=== PATIENT | female | born 1970 | race Caucasian/White ===

== ENCOUNTER 2025-04-12 09:37 | Emergency (ER) | payer BC, SELFPAY ==
[2025-04-12 09:48] VITALS: BP 101/83; PULSE 87; RESP 20; TEMP 36.6; O2SAT 98
--- NOTE | 2025-04-12 09:53 | ED_ITS ---
HPI - Back Pain/Injury General Chief Complaint: Back Pain/Injury Stated Complaint: Back Pain Time Seen by Provider: 04/12/25 09:54 Source: patient Mode of arrival: ambulatory Limitations: no limitations History of Present Illness HPI Narrative: 54 y/o female presented for c/o mid back pain x3 days. Pain radiates to the left trap and arm. Described as throbbing and aching and can feel a knot at the site. Pt works as an ER nurse, and pain Started while bent over a pt starting an IV on her 3rd shift in a row. Endorses chronic back pain and joint pain; takes meloxicam. Took a muscle relaxer last night which helped. Denies pain radiating into the hips or legs, numbness, tingling, weakness of the lower extremities, or change in gait, saddle paresthesia or loss of bowel or bladder. Related Data Home Medications ?Medication ?Instructions ?Recorded ?Confirmed ?Last Taken ?Type fluoxetine 20 mg capsule mg 04/12/25 Unknown History meloxicam 7.5 mg tablet mg 04/12/25 Unknown History Allergies Allergy/AdvReac Type Severity Reaction Status Date / Time No Known Allergies Allergy Verified 04/12/25 10:02 Review of Systems Review of Systems: CONSTITUTIONAL: Denies body aches, fever, chills EYES: Denies visual changes CARDIOVASCULAR: Denies chest pain, palpitations, or edema. RESPIRATORY: Denies cough or dyspnea. GASTROINTESTINAL: Denies abdominal pain, nausea, vomiting, or diarrhea. SKIN: Denies rash, itching, or wounds. MUSCULOSKELETAL: reports back pain NEUROLOGIC: Denies headache, numbness, tingling, or weakness. All systems reviewed & are unremarkable except as noted in HPI and below PMFSH Comments At time of signature, I have reviewed and agree with nursing past medical, surgical, social and family history unless otherwise noted. Please see nursing chart for further information. There is no relevant family history pertinent to the presenting complaint Exam Narrative: GENERAL: Well-appearing NECK: Supple. full ROM CHEST: Speaks in full sentences. No respiratory distress. HEART: Regular rate and rhythm. Normal and equal peripheral pulses. MUSC: Left mid backing in machine tender with palpation approx T7,8. No Vertebral point tenderness. BLEs with normal strength and sensation, normal range of motion No open wounds, skin warm, dry, pink. Capillary refill less than 3 seconds. Gait steady. SKIN: Warm, dry, no rash. NEURO: Alert and oriented x3. Course Course Emergency Course: Patient is aware of diagnosis, understands and agrees to treatment plan. Anticipatory guidance given. Patient agrees to follow-up as directed and is aware of reasons to seek care at the emergency department. Portions of this record may have been created with voice recognition software Level of Care: Express Care Visit Vital Signs Vital signs: Reviewed MDM - Back Pain/Injury MDM Narrative Medical decision making narrative: Patient presented with back pain. Per shared decision making patient declines imaging at this time. Patient has muscle relaxer at home and will continue. Rx steroid. Advised supportive measures and s/s to go to the ER. Pt is stable and appropriate for outpt treatment and follow up with pcp. Differential Diagnosis Differential diagnosis: Likely lumbar radiculopathy, sciatica, strain of lumbar region, renal colic, pyelonephritis and discitis Discharge Plan Discharge Clinical Impression: Back strain Patient Disposition: Home Condition: Stable Instructions: Back Pain (ED) Additional Instructions: Please follow up with your Primary Care Doctor within 72 hours - call for an appointment. Avoid lifting. pushing. pulling, or anything that worsens the pain. Walking and other gentle exercising several times a week has been shown to improve back pain; bed rest is not recommended. Take steroid as directed (hold the meloxicam while taking steroid) Tylenol 1000mg every 8 hours Take muscle relaxers every 8 hours as needed for muscle spasm- do not drive or make any important decisions while on this medication for it can make you drowsy. Over the counter pain cream like icy/hot or biofreeze, or Salon pas/lidocaine 4% patch. You may apply heat or cold to the area as needed. Go to the ER for worsening symptoms or concerns; If you experience any worsening pain, swelling, numbness, weakness, problems with bladder or bowel function, weakness or loss of feeling in one or both of your legs, or any other serious concerns. Patient Language: Malawian Prescriptions: New methylprednisolone [Medrol (Manjit)] 4 mg tablets,dose pack See Rx Instructions .ROUTE .COMPLEX Qty: 21 0RF Rx Instructions: orally per package directions No Action meloxicam 7.5 mg tablet fluoxetine 20 mg capsule Follow-up/Referrals: UNKNOWN,DOCTOR [Primary Care Provider] -
--- OUTSIDE RECORDS SUMMARY | 2025-04-12 10:18 | XMS_ITS | Referral Summary ---
Author Organization [address] Address [address] [place] [id number] Care Team Providers Care Patch Worker Name Role Phone Jona Becker MD Primary Care Provider + Encounters Date Type Department Care Team Description 03/15/2025 Results [facility] [address] [place] [id number] Romulo Sterling MD Pap, reflex HPV 03/01/2025 3:30 PM CDT Office Visit [place] [facility] [address] [place] [phone] Romulo Sterling MD Well woman exam (Primary Dx) from Last 3 Months Allergies Active Allergy Reactions Criticality Noted Date Comments Lisinopril Cough Low 02/12/2019 Medications FLUoxetine (PROzac) 20 mg capsule TK 1 C PO QAM 1 9 Active valsartan (DIOVAN) 160 mg tablet TAKE ONE TABLET BY MOUTH EVERY DAY 9 Active NIACIN ORAL Take by mouth daily Active montelukast (SINGULAIR) 10 mg tablet Take 1 tablet (10 mg total) by mouth daily 2 Active tretinoin (RETIN-A) 0.1 % cream APPLY TOPICALLY TO FACE AT BEDTIME 3 Active cream base no.52, bulk, cream Estradiol 1mg/gm and Progesterone 200 mg/gm. Apply 1/2 gram topically daily to inner wrist. 100 g 3 5 Active Active Problems Problem Noted Date Diagnosed Date Irregular bleeding 07/29/2023 Assessment & Plan (07/29/2023 12:25 PM CDT): I discussed that monthly bleeding with cyclic HRT is normal. I offered an endometrial biopsy today. I discussed that she likely has some remaining endometrial tissue status post her endometrial ablation given her history. I have discussed possibility of obstructive blood flow explaining the hematosalpinx/hydrosalpinx and her present cramping. Since most recently she was on the estradiol patch, I recommended cycling on progesterone 200 mg for 12 nights now and again next month. Expect a withdrawal bleed this month. We will see back in 2 months for a repeat pelvic ultrasound and visit. I have discussed options including this plan or possible need for endometrial biopsy, D & C or hysterectomy. She does not wish to continue estrogen at this time. Benefits and risks of HRT discussed. Hormone replacement therapy (HRT) 01/31/2023 Assessment & Plan (12/09/2023 12:47 PM YOUTH MANAGER): Risks and benefits of hormone replacement (HRT) for vasomotor symptoms related to menopause discussed. Patient aware risks associated with HRT include increased risk of blood clots, heart attack, stroke, and increased risk of breast cancer. Patient verbalizes understanding of risk and benefits and wishes to proceed with HRT. Continue topical estradiol and progesterone cream as directed. Six month supply given 09/30/23, advised to call when refills needed. Assessment & Plan (01/31/2023 3:30 PM CDT): Risks and benefits of hormone replacement (HRT) for vasomotor symptoms related to menopause discussed. Patient aware risks associated with HRT include increased risk of blood clots, heart attack, stroke, and increased risk of breast cancer. Patient verbalizes understanding of risk and benefits and wishes to proceed with HRT. Continue current regimen for now of bi-weekly transdermal estradiol 0.5 mg and progesterone 200 mg days 1-12 each month. Plan to discuss patient's menstrual cycle pattern and HRT with Dr. Sterling for further guidance on management of vasomotor symptoms. Epistaxis 04/12/2021 Tinnitus of both ears 04/12/2021 Routine eye exam 10/21/2019 Myopia of both eyes 10/21/2019 Hypercholesterolemia 05/29/2015 Overview (02/07/2017): High cholesterol Hypertension 05/29/2015 Overview (02/07/2017): Hypertension Asthma 05/29/2015 Overview (02/07/2017): Asthma Social History Tobacco Use Types Packs/Day Years Used Date Smoking Tobacco: Former Cigarettes Q uit: 2009 Smokeless Tobacco: Never Tobacco Cessation:Counseling Given: Not Answered Comments:Smoking History Packs/day: 20 Cigarettes Alcohol Use Standard Drinks/Week Comments Yes 0 (1 standard drink = 0.6 oz pur e alcohol) AUDIT-C Answer Date Recorded Q1: How often do you have a drink containing alc ohol? 2-4 times a month 04/12/2021 Q2: How many drinks containi ng alcohol do you have on a typical day when you are drinking? 1 or 2 04/12/2021 Frequency of Binge Drinking Not on file 04/03 PHQ-2 Answer Date Recorded PHQ-2 Total Score (If total score is 3 or more points, staff should administer the PHQ-9) 0 12/04/2022 Comments No Sex and Gender Information Value Date Recorded Sex Assigned at Not on file Legal Sex Female 11:28 PM YOUTH MANAGER Gender Identity Not on file Sexual Orientation Not on file Last Filed Vital Signs Vital Sign Reading Time Taken Comments Blood Pressure 122/80 03/01/2025 3:17 PM CDT Pulse - - Temperature - - Respiratory Rate - - Oxygen Saturation - - Inhaled Oxygen Concentration - - Weight 73.5 kg (162 lb) 03/01/2025 3:17 PM CDT Height 167.6 cm (5' 6) 03/01/2025 3:17 PM CDT Body Mass Index 26.15 03/01/2025 3:17 PM CDT Plan of Treatment Not on file Procedures Procedure Name Priority Date/Time Associated Diagnosis Comments PAP, REFLEX HPV Routine 03/01/2025 4:19 PM CDT Well woman exam SCREENING MAMMOGRAM BILATERAL W PIYUSH Schedule Routine, Read Routine (OP Routine) 02/10/2021 8:14 AM CDT Screening mammogram, encounter for from Last 3 Months or Most Recently Relevant to Health Maintenance Results * Pap, reflex HPV (03/01/2025 4:19 PM CDT) CLINICAL INFORMATION: Yulia Brandon Comment:WELL WOMAN EXAM LMP Yulia Brandon Comment:11-03-24 Previous Pap Yulia Brandon Comment:NONE GIVEN Prev. Bx Yulia Brandon Comment:NONE GIVEN SOURCE: Yulia Brandon Comment:Cervix, Endocervix Pap, specimen adequacy Yulia Brandon Comment: Satisfactory for evaluation. Endocervical/transformation zone component present. HPV interp Yulia Brandon Comment: Cytology Results: Negative for intraepithelial lesion or malignancy. COMMENTS Yulia Brandon Comment: This Pap test has been evaluated with computer assisted technology. Tool And Fixture Repairer Cruz Crum Comment: PCM, CT(ASCP) CT Screening Location: [place] [address] [address] [place] [address] Comment Yulia Brandon Comment: EXPLANATORY NOTE: The Pap is a screening test for cervical cancer. It is not a diagnostic test and is subject to false negative and false positive results. It is most reliable when a satisfactory sample, regularly obtained, is submitted with relevant clinical findings and history, and when the Pap result is evaluated along with historic and current clinical information. Thin prep 03/01/2025 4:19 PM CDT 03/02/2025 2:54 PM CDT Romulo Sterling MD LAB CYTOLOGY ORDERABLES Fi nal Result [facility] [address] [place] [phone] * Screening Mammogram Bilateral W Piyush (02/10/2021 8:14 AM CDT) Anatomical Region Laterality Modality Breast Bilateral Mammography 02/12/2021 12:2 4 PM CDT Impressions 02/12/2021 12:30 PM CDT There is no mammographic evidence of malignancy. A 1 year screening mammogram is recommended. BI-RADS: 1 - Negative. The patient will be entered into a reminder system with a target due date of 1 year for her next mammogram. Electronically signed by: Jona Marrero M.D. Narrative 02/12/2021 12:30 PM CDT EXAMINATION: SCREENING MAMMOGRAM BILATERAL W PIYUSH ORDERING HEALTHCARE PROVIDER: SELF SCREENING MAMMOGRAM HISTORY: Routine screening mammography. COMPARISON: 02/08/2019, 10/17/2017, 09/14/2014, 08/18/2013. TECHNIQUE: CC and MLO views of the bilateral breasts were obtained with digital technique using breast tomosynthesis with C view. Computer aided detection was utilized. FINDINGS: DENSITY: There are scattered fibroglandular elements in the bilateral breasts. BREASTS: There are no suspicious masses, suspicious calcifications, or other suspicious findings in either breast. There has been no suspicious interval change. us Self Screening Mammogram IMG MAMMO PROCEDURES Fi nal Result from Last 3 Months or Most Recently Relevant to Health Maintenance [place] [facility] [facility], [facility] Care Teams Patch Worker Relationship Specialty Start Date End Date Jona Becker MD PCP - General 10/17/17
--- OUTSIDE RECORDS SUMMARY | 2025-04-12 10:18 | XMS_ITS | Clinical Summary ---
Author Organization [address] Address [address] [place] [phone] Care Team Providers Care Conveyor Worker Name Role Phone Jona Becker MD Primary Care Provider + Allergies Active Allergy Reactions Criticality Noted Date [...] 01/31/2023 Assessment & Plan (12/09/2023 12:47 PM HOSPITALITY HOST): Risks and benefits of hormone replacement (HRT) [...] (02/07/2017): Hypertension Asthma 05/29/2015 Overview (02/07/2017): Asthma Encounters Date Type Department Care Team Description 03/15/2025 Results Follow-Up [address] [place] [phone] Romulo Sterling MD Pap, reflex HPV 03/01/2025 3:30 PM CDT Office Visit [address] [place] [address] Romulo Sterling MD Well woman exam (Primary Dx) from Last 3 Months Surgical History Surgery Date Site/Laterality Comments TUBAL LIGATION Tubal ligation OTHER SURGICAL HISTORY 11/03/1988 - 11/02/1989 : OTHER SURGICAL HISTORY 11/03/1993 - 11/02/1994 : CHOLECYSTECTOMY ABLATION TONSILLECTOMY SECTION Medical History Medical History Date Comments Hypertension Hypertension Asthma Asthma; Comments : [facility] 05/29/2015 - Malignant neoplasm of skin Cance r, skin; Comments: [facility] 05/29/2015 - Hx Other Medical ; Outc ome: 39W0D week 9lb(s) 10 oz Male Hx Other Medical ; Outc ome: 40W0D week 8lb(s) 16 oz Male Hx Other Medical High Cholestero l/ triglycerides; Comments: [facility] 05/29/2015 - Hx Other Medical after tubal ligation Fibrocystic breast Allergic rhinitis Anxiety Depression Hypertension Family History Medical History Relation Name Comments Cataracts Father and mother Diabetes type II Father and mother Diabetes me llitus type 2; Heart disease Father and mother Heart disease; Hyperlipidemia Father and mother High Choleste rol; Hypertension Father and mother Hypertension; Cataracts Mother Relation Name Status Comments Father and mother Mother Social History Tobacco Use Types Packs/Day Years [...] on file Legal Sex Female 11:28 PM HOSPITALITY HOST Gender Identity Not on file Sexual Orientation Not on file Obstetrics History Para Term AB IAB SAB Ectopic Multiple Livin g Live Births 3 3 3 3 3 Date Outcome GA Total Labor Labor/2nd/3rd Weight Sex Type Anes PTL Ruba A1 A5 Name Clin Term Term Term Last Filed Vital Signs Vital Sign Reading [...] 03/01/2025 3:17 PM CDT Plan of Treatment Health Maintenance Due Date Last Done Comments Colon Cancer Screening-Colonoscopy 1969 Hepatitis C Screening 1969 Hepatitis B Screening 1987 Pneumococcal vaccine <65 (2 of 2 - PCV) 08/14/2019 08/14/2018 Depression Screening 12/04/2023 12/04/2022 Breast Cancer Screening-Mammogram 12/29/2025 12/29/2024, 12/29/2024, 12/12/2023, Additional history exists Cervical Cancer Screening 03/01/20262024, 12/08/2023, 12/04/2022 Regular Well Visit/Exam 18-64 03/01/2026, 12/08/2023, 12/04/2022 DTaP/Tdap/Td Vaccine (3 - Td or Tdap) 01/26/2035 01/26/2025, 08/17/2015 Zoster Vaccine Completed 03/08/2024, 01/27/2024 Influenza Vaccine Completed 08/04/2024, , 08/17/2022, Additional history exists Procedures Procedure Name Priority Date/Time Associated Diagnosis [...] has been evaluated with computer assisted technology. Senior Mainframe Developer [facility] st Keyla Brandon Comment: PCM, CT(ASCP) CT Screening Location: Yulia Trevino [facility] Administration [place] [address] Comment Yulia Brandon Comment: EXPLANATORY NOTE: The [...] MD LAB CYTOLOGY ORDERABLES Fi nal Result [facility] [address] [address] [place] [phone] * Screening Mammogram Bilateral W Piyush (02/10/2021 [...] Most Recently Relevant to Health Maintenance [place] [employer] [place] [employer] [place] [facility] Care Teams Conveyor Worker Relationship Specialty Start Date End Date Jona Becker MD PCP - General 10/17/17
--- OUTSIDE RECORDS SUMMARY | 2025-04-12 10:18 | XMS_ITS | Clinical Summary ---
Author Organization [facility] Address [address] [place] [address] Phone Care Team Providers Care Community Relations Coordinator Name Role Phone Jona Becker MD Primary Care Provider [phone] Enrique Chao MD Unavailable Allergies No known active allergies Medications LOSARTAN POTASSIUM PO Take 80 mg by mouth. Active ondansetron (ZOFRAN) 4 MG Tablet Take 1-2 Tabs by mouth every 8 hours as needed for Nausea. 15 Tab 0 6 Active Additional Information Patient not taking.Reported on 03/28/2022 FLUoxetine (PROzac) 20 MG Capsule TAKE 2 CAPSULES BY MOUTH EVERY DAY 2 Active Vyvanse 40 MG Capsule 2 Active montelukast (SINGULAIR) 10 MG Tablet 2 Active HYDROcodone-paul taminophen (NORCO) 5-325 MG TabletIndicatio ns:Closed fracture of tuft of distal phalanx of left ring finger Take 1 Tablet by mouth every 6 hours as needed for Moderate or more severe pain. 12 Tablet 4 Active Active Problems No known active problems Encounters Date Type Department Care Team Description 03/15/2025 Travel from Last 3 Months Immunizations Immunization Administration Dates Next Due Influenza Vaccine, Quadrivalent, PF 08/17/2022 Influenza,Split Virus,Trivalent,Injectable,PF Family History Medical History Relation Name Comments Diabetes Brother 1 Jose Hypertension Brother 1 Jose No Known Problems Brother 2 tyrell Diabetes Father Hypertension Father No Known Problems Maternal Grandfather No Known Problems Maternal Grandmother Chronic Lung Disease Mother High Cholesterol Mother Heart Attack Paternal Grandfather No Known Problems Paternal Grandmother No Known Problems Sister nick No Known Problems Son 1 No Known Problems Son 2 Relation Name Status Comments Brother 1 Jose Alive Brother 2 tyrell Alive Father Alive Maternal Grandfather Maternal Grandmother Mother Alive Paternal Grandfather Paternal Grandmother Sister nick Alive Son 1 Alive Son 2 Alive Social History Tobacco Use Types Packs/Day Years Used Date Smoking Tobacco: Former Cigarettes 1 24 2009 Smokeless Tobacco: Never Alcohol Use Standard Drinks/Week Comments No 0 (1 standard drink = 0.6 oz pur e alcohol) Rare Sexually Active Control Partners Comments Yes Male Comments No Sex and Gender Information Value Date Recorded Sex Assigned at Female 11/30/2024 10:52 AM FORGE OPERATOR HELPER Legal Sex Female 9:57 PM CDT Gender Identity Female 11/30/2024 10:52 AM FORGE OPERATOR HELPER Sexual Orientation Not on file Last Filed Vital Signs Vital Sign Reading Time Taken Comments Blood Pressure 126/70 06/04/2024 2:12 PM CDT Pulse 68 06/04/2024 2:12 PM CDT Temperature 36.6 C (97.9 F) 06/04/2024 2:12 PM CDT Respiratory Rate 16 06/04/2024 2:18 PM CDT Oxygen Saturation 100% 06/04/2024 2:12 PM CDT Inhaled Oxygen Concentration - - Weight 103.4 kg (228 lb) 06/04/2024 2:12 PM CDT Height 167.6 cm (5' 6) 06/04/2024 2:12 PM CDT Body Mass Index 36.8 06/04/2024 2:12 PM CDT Plan of Treatment Health Maintenance Due Date Last Done Comments Hepatitis C Virus (HCV) Screening 1969 Hepatitis B Immunization (1 of 3 - 19+ 3-dose series) 1988 Pap Smear 1990 Cervical Cancer Screening (CCS) 1999 HPV/Cotest 1999 Cologuard 2014 Immunochemical Fecal Occult Blood 2014 Pneumococcal Immunization (50+ years) (2 of 2 - PCV) 2019 08/14/2018 SARS-COV-2 Immunization ( season) 2024 08/13/2023, 09/21/2022, 10/17/2021, Additional history exists Mammogram 12/29/2025 12/29/2024, 12/05, 12/12/2023, Additional history exists Colonoscopy 05/01/2027 05/01/2022, 04/04, 04/25/2022 Colorectal Cancer Screening 05/01/2027 Respiratory Syncytial Virus (RSV) Immunization (Adult) (1 - 1-dose 75+ series) 2044 Pneumococcal Immunization Combined Discontinued 08/14/2018 Zoster Immunization Completed 03/08/2024, Influenza Immunization Completed , 09/02/2023, 08/13/2023, Additional history exists Discussion re Starting/Frequency of Mammograms Discontinued 12/29/2024, 12/12/2023, 06/25/2022, Additional history exists DTaP/Tdap/Td Immunization Discontinued 01/26/2025, TdaP Immunization Completed 01/26/2025, 08/17/2015 Human Papillomavirus (HPV) Immunization Aged Out No longer eligible based on patient's age to complete this topic Meningococcal Immunization (ACWY) Aged Out No longer eligible based on patient's age to complete this topic Rotavirus Immunization Aged Out No lo nger eligible based on patient's age to complete this topic Procedures Procedure Name Priority Date/Time Associated Diagnosis Comments JUANCARLOS SCREENING BILATERAL DIGITAL W CAD W MAXI Routine 12/29/2024 12:08 PM FORGE OPERATOR HELPER Visit for screening mammogram from Last 3 Months or Most Recently Relevant to Health Maintenance Results * JUANCARLOS SCREENING BILATERAL DIGITAL W CAD W MAXI (12/29/2024 12:08 PM FORGE OPERATOR HELPER) Anatomical Region Laterality Modality breast Bilateral Mammography 12/29/2024 12:0 7 PM FORGE OPERATOR HELPER Narrative 12/31/2024 5:15 PM FORGE OPERATOR HELPER - JUANCARLOS SCREENING BILATERAL DIGITAL W CAD W MAXI BILATERAL DIGITAL SCREENING MAMMOGRAM 3D/2D WITH CAD WITH MEDIOLATERAL OBLIQUE CRANIOCAUDAL: 12/29/2024 The study was acquired using digital technology and interpreted from soft copy. Current study was also evaluated with ICAD version 7.2. 2D digital mammographic views, as well as 3D digital tomosynthesis were performed in the CC and MLO projections. CLINICAL: Routine screening. Patient has no complaints. Patient reports 30 pound weight loss since last mammogram. Personal history of skin cancer. No family history of breast cancer. COMPARISONS: Comparison is made to exams dated: 02/10/2021 [facility], 06/25/2022 [facility], and 02/08/2019 [facility]. BREAST TISSUE:There are scattered areas of fibroglandular density. FINDINGS: No significant masses, calcifications, or other findings are seen in either breast. There has been no significant interval change. IMPRESSION: NEGATIVE There is no mammographic evidence of malignancy. A 1 year screening mammogram is recommended. A letter will be sent to the patient with these results. The patient will be entered into a reminder system with a target due date of 1 year for her next screening exam. Electronically signed by: Migue leon/ni:12/30/2024 22:32:42 Educational Institution Curator(s): RT Rere(R)(M), [facility] letter sent: Normal Exam Reading location: [place] Mammogram BI-RADS: Category 1: Negative Procedure Note Migue Vuong MD - 12/31/2024 - JUANCARLOS SCREENING BILATERAL DIGITAL W CAD W MAXI BILATERAL DIGITAL SCREENING MAMMOGRAM 3D/2D WITH CAD WITH MEDIOLATERAL OBLIQUE CRANIOCAUDAL: 12/29/2024 The study was acquired using digital technology and interpreted from soft copy. Current study was also evaluated with ICAD version 7.2. 2D digital mammographic views, as well as 3D digital tomosynthesis were performed in the CC and MLO projections. CLINICAL: Routine screening. Patient has no complaints. Patient reports 30 pound weight loss since last mammogram. Personal history of skin cancer. No family history of breast cancer. COMPARISONS: Comparison is made to exams dated: 02/10/2021 [facility], 06/25/2022 [facility], and 02/08/2019 [facility]. BREAST TISSUE:There are scattered areas of fibroglandular density. FINDINGS: No significant masses, calcifications, or other findings are seen in either breast. There has been no significant interval change. IMPRESSION: NEGATIVE There is no mammographic evidence of malignancy. A 1 year screening mammogram is recommended. A letter will be sent to the patient with these results. The patient will be entered into a reminder system with a target due date of 1 year for her next screening exam. Electronically signed by: Migue Vuong M.D. ll/[place]:12/30/2024 22:32:42 Educational Institution Curator(s): RT Rere(R)(M), [facility] letter sent: Normal Exam Reading location: [place] Mammogram BI-RADS: Category 1: Negative us Jona Becker MD IMG MAMMO ORDERABLES Final Re sult from Last 3 Months or Most Recently Relevant to Health Maintenance Insurance [employer] [facility] [facility] Care Teams Community Relations Coordinator Relationship Specialty Start Date End Date Jona Becker MD [address] [place] [id number] PCP - General 08/17/16 Enrique Chao MD [address] [address] Consulting Physician Colon and Rectal Surgery 03/20/22
--- OUTSIDE RECORDS SUMMARY | 2025-04-12 10:18 | XMS_ITS | Encounter Summary ---
Author Organization [facility] Healthcare Address [address] [place] [address] Care Team Providers Care Show Worker Name Role Phone Jona Becker MD Primary Care Provider + Encounter Details Date Type Department Care Team (Late st Contact Info) Description 03/15/2025 Results Follow-Up [facility] [address] [place] [address] [address] [place] [address] Romulo Sterling MD [address] [place] [address] [address] [place] [address] Pap, reflex HPV Social History Tobacco Use Types Packs/Day Years Used Date Smoking Tobacco: Former Cigarettes Q uit: 2009 Smokeless Tobacco: Never Comments:Smoking History Pac ks/day: 20 Cigarettes Alcohol Use Standard Drinks/Week Comments [...] on file Legal Sex Female 11:28 PM INVENTORY ASSOCIATE AND DRIVER Gender Identity Not on file Sexual Orientation Not on file documented as of this encounter Plan of Treatment Not on file documented as of this encounter Visit Diagnoses Not on filedocumented in this encounter Care Teams Show Worker Relationship Specialty Start Date End Date Jona Becker MD PCP - General 10/17/17 documented as of this encounter
--- OUTSIDE RECORDS SUMMARY | 2025-04-12 10:19 | XMS_ITS | Encounter Summary ---
Author Organization [facility] Address [address] [facility] 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, face, and neck (HCC) Social History Tobacco Use Types Packs/Day Years Used Date Smoking Tobacco: Unknown Alcohol Use Standard Drinks/Week Comments No 0 (1 standard drink = 0.6 oz pur e alcohol) Comments No Sex and Gender Information Value Date Recorded Sex Assigned at Female 11/30/2024 10:52 AM COOKIE MIXER HELPER Legal Sex Female 9:57 PM CDT Gender Identity Female 11/30/2024 10:52 AM COOKIE MIXER HELPER Sexual Orientation Not on file documented as of this encounter Plan of Treatment Not on file documented as of this encounter Procedures Procedure Name Priority Date/Time Associated Diagnosis Comments HIV 1 & 2 ANTIBODY & ANTIGEN SCREEN Routine 10/12/2021 11:15 AM COOKIE MIXER HELPER 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, face, and neck (HCC) [ICD-10-CM] QUANTIFERON-TB GOLD PLUS Routine 10/12/2021 11:15 AM COOKIE MIXER HELPER 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, face, and neck (HCC) [ICD-10-CM] MMRV PANEL Routine 10/12/2021 11:15 AM COOKIE MIXER HELPER 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, face, and neck (HCC) [ICD-10-CM] MUMPS IGG Routine 10/12/2021 11:15 AM COOKIE MIXER HELPER 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, face, and neck (HCC) [ICD-10-CM] HERPES ZOSTER (VARICELLA) IGG Routine 10/12/2021 11:15 AM COOKIE MIXER HELPER 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, face, and neck (HCC) [ICD-10-CM] RUBEOLA (MEASLES) IGG Routine 10/12/2021 11:15 AM COOKIE MIXER HELPER 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, face, and neck (HCC) [ICD-10-CM] RUBELLA IMMUNITY IGG Routine 10/12/2021 11:15 AM COOKIE MIXER HELPER 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, face, and neck (HCC) [ICD-10-CM] HEPATITIS B SURFACE ANTIBODY (HBSAB) Routine 10/12/2021 11:15 AM COOKIE MIXER HELPER 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, face, and neck (HCC) [ICD-10-CM] documented in this encounter Results * HEPATITIS B SURFACE ANTIBODY (HBSAB) (10/12/2021 11:15 AM COOKIE MIXER HELPER) HEPATITIS B SURFACE ANTIBODY 22.22 mIU/mL [facility] ARCH [id number] B 10/12/2021 9:26 PM COOKIE MIXER HELPER [facility] Comment: Detected Range: >12.00 Individual is considered immune to HBV infection Blood No Phlebotomy Charged / Unknown 10/12/2021 11:15 AM COOKIE MIXER HELPER 10/12/2021 4:16 PM COOKIE MIXER HELPER us Aury Vance APRN, NOEMI CHEMISTRY ORDERABLE S Final Result Performing Organization Address [facility] Co de Phone Number [facility] [address] [place] [address], [place] * HERPES ZOSTER (VARICELLA) IGG (10/12/2021 11:15 AM COOKIE MIXER HELPER) VARICELLA ZOSTER IGG 2.8 >=1.1 AI 10/12/2021 9:43 PM COOKIE MIXER HELPER [facility] Blood No Phlebotomy Charged / Unknown 10/12/2021 11:15 AM COOKIE MIXER HELPER 10/12/2021 4:16 PM COOKIE MIXER HELPER Narrative [facility] - 10/12/2021 9:43 PM COOKIE MIXER HELPER <= 0.8 Negative. No detectable VZV IgG antibody. 0.9 - 1.0 Equivocal >=1.1 Positive Antibody testing was performed by multiplex flow immunoassay on the BioPlex platform. us Aury Vance APRN, CNP IMMUNOLOGY ORDERABL ES Final Result Performing Organization Address [facility] Co de Phone Number [facility] [address] [place] [address], [place] * RUBEOLA (MEASLES) IGG (10/12/2021 11:15 AM COOKIE MIXER HELPER) MEASLES AB IGG 2.2 >=1.1 AI 10/12/2021 9:[address] [facility] Blood No Phlebotomy Charged / Unknown 10/12/2021 11:15 AM COOKIE MIXER HELPER 10/12/2021 4:16 PM COOKIE MIXER HELPER Narrative [facility] - 10/12/2021 9:43 PM COOKIE MIXER HELPER <= 0.8 Negative. No detectable Measles IgG antibody. 0.9 - 1.0 Equivocal >=1.1 Positive Antibody testing was performed by multiplex flow immunoassay on the BioPlex platform. us Aury L Behrends CHARTERED FINANCIAL ANALYST, WEB SITE SPECIALIST IMMUNOLOGY ORDERABL ES Final Result Performing Organization Address [facility]/ZIP Co de Phone Number [facility] [address] [place] [address], [place] * (ABNORMAL) RUBELLA IMMUNITY IGG (10/12/2021 11:15 AM COOKIE MIXER HELPER) RUBELLA IMMUNITY Nonimmune( A) Immune, Invalid 10/13/2021 10:27 [address] M[address]ER [address] [facility] Blood No Phlebotomy Charged / Unknown 10/12/2021 11:15 AM COOKIE MIXER HELPER 10/12/2021 4:16 PM COOKIE MIXER HELPER Narrative [facility] - 10/13/2021 10:27 AM COOKIE MIXER HELPER Antibody testing was performed by multiplex flow immunoassay on the BioPlex platform. us Aury Sandra Behrenmoses CHARTERED FINANCIAL ANALYST, WEB SITE SPECIALIST CHEMISTRY ORDERABLE S Final Result Performing Organization Address [facility] Co de Phone Number [facility] [address] [place] [address], [place] * (ABNORMAL) MUMPS IGG (10/12/2021 11:15 AM COOKIE MIXER HELPER) Mumps Ab IgG 1.0(L) >=1.1 AI 10/12/2021 9:[address] [facility] Blood No Phlebotomy Charged / Unknown 10/12/2021 11:15 AM COOKIE MIXER HELPER 10/12/2021 4:16 PM COOKIE MIXER HELPER Narrative [facility] - 10/12/2021 9:43 PM COOKIE MIXER HELPER <= 0.8 Negative. No detectable Mumps IgG antibody. 0.9 - 1.0 Equivocal >=1.1 Positive Antibody testing was performed by multiplex flow immunoassay on the BioPlex platform. us Aury L Behrends CHARTERED FINANCIAL ANALYST, WEB SITE SPECIALIST IMMUNOLOGY ORDERABL ES Final Result Performing Organization Address City/[facility]/ZIP Co de Phone Number [facility] [address] [place] [address], [place] * QUANTIFERON-TB GOLD PLUS (10/12/2021 11:15 AM COOKIE MIXER HELPER) NIL CONTROL 0.03 <8.01 IU/mL 10/15/2021 3:22 PM [facility] TB ANTIGEN 1 0.01 <0.35 IU/mL 10/15/2021 3:22 PM [facility] TB ANTIGEN 2 0.00 <0.35 IU/mL 10/15/2021 3:22 PM [facility] MITOGEN CONTROL >10.00 >0.49 IU/mL 10/15/20 3:22 PM [facility] INTEPRETATION TB NEGATIVE NEGATIVE, NEGATIVE (TB antigen response less than 25% of internal negative control value) 10/15/2021 3:22 PM [facility] Comment:No immune response t o Mycobacterium tuberculosis antigens was noted. M. tuberculosis infection unlikely. Blood No Phlebotomy Charged / Unknown 10/12/2021 11:15 AM [facility] 10/12/2021 4:16 PM COOKIE MIXER HELPER Narrative [facility] - 10/15/2021 3:22 PM COOKIE MIXER HELPER A POSITIVE QUANTIFERON-TB GOLD PLUS RESULT SHOULD NOT BE THE SOLE OR DEFINITIVE BASIS FOR DETERMINING INFECTION WITH M. TUBERCULOSIS. Diagnosing or excluding tuberculosis disease, and assessing the probability of LTBI, requires a combination of epidemiological, historical, medical and diagnostic findings (e.g., acid fast bacilli (AFB) smear and culture, chest xray) that should be taken into account when interpreting QFT-Plus results. Furthermore, the magnitude of the measured gamma interferon level cannot be correlated to stage or degree of infection, level of immune responsiveness, or likelihood for progression to active disease. The Nil control adjusts for background (e.g., elevated levels of circulating gamma interferon or presence of heterophile antibodies). The Mitogen control serves as an internal positive control and verifies each specimen tested can produce a gamma interferon response. Low mitogen may occur with insufficient lymphocytes, reduced lymphocyte activity due to improper specimen handling, filling/mixing of the Mitogen tube, or inability of the patient's lymphocytes to generate gamma interferon. Infection with other Mycobacteria, including M. kansasii, M. szulgai, and M. marinum, may cause positive results. A negative QuantiFERON-TB Gold Plus result does not preclude the possibility of M. tuberculosis infection or tuberculosis disease: false negative results can be due to stage of infection (e.g., specimen obtained prior to the development of cellular immune response), co-morbid conditions which affect immune function, or other individual immunological factors. The minimum number of lymphocytes required for a reliable test result has not been established and may also be variable. The performance of the [place] format of the QuantiFERON-TB Gold Plus test has not been extensively evaluated with specimens from the following groups of individuals: 1. Individuals who have impaired or altered immune function such as those who have HIV infection or AIDS; those who have transplantation managed with immunosuppressive treatment; or others who receive immunosuppressive drugs (e.g., corticosteroids, methotrexate, azathioprine, cancer chemotherapy); and those who have other clinical conditions: diabetes, silicosis, chronic renal failure, hematological disorders (e.g., leukemia and lymphomas), and other specific malignancies (e.g., carcinoma of the head or neck and lung). 2. Individuals younger than age 17 years 3. women Aury Vance APRN, CNP IMMUNOLOGY ORDERABL ES Final Result Performing Organization Address City/[facility] Co de Phone Number [facility] [address] [place] [address], [place] * HIV 1 & 2 ANTIBODY & ANTIGEN SCREEN (10/12/2021 11:15 AM COOKIE MIXER HELPER) HIV 1 & 2 ANTIBODY & ANTIGEN SCREEN NON DETECTED NON DETECTED [facility] ARCH [id number] 10/12/2021 9:27 [address]ER [address]PER [facility] Blood No Phlebotomy Charged / Unknown 10/12/2021 11:15 AM COOKIE MIXER HELPER 10/12/2021 4:16 PM COOKIE MIXER HELPER Aury Vance APRN, CNP LAB SEND OUTS Fin al Result Performing Organization Address City/[facility]/ZIP Co de Phone Number 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
--- OUTSIDE RECORDS SUMMARY | 2025-04-12 10:19 | XMS_ITS | Clinical Summary ---
Author Organization [facility] Address [address] [place] [address] Care Team Providers Care Flotation Tender Helper Name Role Phone Jona Becker MD Primary Care Provider [phone] Allergies Active Allergy Reactions Criticality Noted Date Comments Lisinopril Cough Low 02/12/2019 Medications albuterol HFA 90 mcg inhaler Take 2 Puffs by inhalation every 6 hours as needed for Wheezing. 8.5 Gram 2 10/20/20 15 Active NIACIN ORAL Take 1 Tablet by mouth daily. Active ERGOCALCIFEROL, VITAMIN D2, (VITAMIN D ORAL) Take 1 Capsule by mouth daily. Active cholestyramine-asp artame (PREVALITE) 4 gram Powder Take 1 Packet (4 Gram) by mouth 2 times daily. 60 Packet 11 10/02/20 16 Active Additional Information Patient not taking.Reported on 01/26/2025 LORazepam (ATIVAN) 1 mg tablet Take 1 mg by mouth 1 time daily as needed. 2 03/27/20 17 Active acetaminophen-saw eth-dichloral (MIDRIN) 325-65-100 mg capsule Take 1 Capsule by mouth every 4 hours as needed for Migraine. 40 Capsule 1 04/07/20 17 Active vilazodone (VIIBRYD) 40 mg Tablet Take 1 Tablet (40 mg) by mouth daily. 30 Tablet 3 08/20/20 17 Active Additional Information Patient not taking.Reported on 01/26/2025 VYVANSE 40 mg capsule TK ONE C PO ONCE A DAY 0 06/23/20 18 Active oxymetazoline (AFRIN) 0.05 % [place], Non-Aerosol Administer 2 Sprays in each nostril 2 times daily. For nosebleeds 15 mL 1 10/11/20 20 Active FLUoxetine (PROzac) 20 mg capsule Take 2 Capsules by mouth daily. 01/24/20 22 Active montelukast (SINGULAIR) 10 mg tablet Take 1 Tablet (10 mg) by mouth daily at bedtime. 30 Tablet 2 12/24/19 23 Active meloxicam (MOBIC) 7.5 mg tabletIndications: Primary osteoarthritis involving multiple joints Take 1 Tablet (7.5 mg) by mouth daily. 30 Tablet 2 01/27/20 24 Active tirzepatide, weight loss, (Zepbound) 7.5 mg/0.5 mL Pen InjectorIndication s:Obesity (BMI 30.0-34.9) Inject 7.5 mg by subcutaneous injection every 7 days. 2 mL 3 06/03/20 24 Active Active Problems Patient Care Coordination No te Formatting of this note migh t be different from the original. 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 ADD (attention deficit disorder) 10/20/2015 Essential hypertension 10/20/2015 Major depressive disorder, recurrent episode, mi ld 10/20/2015 Hyperlipidemia 10/20/2015 Resolved Problems Problem Noted Date Diagnosed Date Resolved Date Acute cholecystitis 08/20/2016 04/07/20 17 Encounters Date Type Department Care Team Description 03/24/2025 External Device Data [facility] ABSTRACTION Provider, Abstract 03/23/2025 External Device Data [facility] ABSTRACTION Provider, Abstract 03/22/2025 External Device Data [facility]STRACTION Provider, Abstract 03/08/2025 External Device Data [facility]STRA[facility] Provider, Abstract 02/24/2025 Orders Only [address] [place] [id number] Provider, Abstract 01/26/2025 10:20 AM CDT Office Visit [address] [place] [id number] Jona Becker MD Encounter for routine adult health examination with abnormal findings (Primary Dx); Declined influenza vaccine; Essential hypertension; Mixed hyperlipidemia; Major depressive disorder, recurrent episode, mild; Vitamin D deficiency; Abnormal glucose; Vitamin B12 deficiency (non anemic); Need for Tdap vaccination 01/19/2025 External Device Data [facility] ABSTRACTION Provider, Abstract 01/11/2025 External Device Data [facility] ABSTRACTION Provider, Abstract 01/11/2025 External Device Data [facility] ABSTRACTION Provider, Abstract from Last 3 Months Immunizations Immunization Administration Dates Next Due (ADACEL/BOOSTRIX)(10 YR UP) TDAP VACCINE, 0.5ML, IM 01/26/2025,08/17/2015 (PFIZER TEJAL)(5-11 YRS PRIMA RY SERIES) COVID-19 VACCINE - EMERGENCY USE AUTHORIZATION, MRNA, TEJAL(PF) 10 MCG/0.2 ML IM SUSP 10/16/2021,11/10/2020,10/10/2020 (PNEUMOVAX 23)(50 YRS UP) PN EUMOCOCCAL POLYSACCHARIDE (PPV23) 0.5 ML, IM 08/14/2018 (Pfizer Bivalent)(12 Yr Up) COVID-19 Vaccine - Emergency Use Authorization, MRNA, Lnp-S(Pf) 30 Mcg/0.3 Ml Susp 09/17/2022 (SHINGRIX)(50 YRS UP) ZOSTER VACCINE RECOMBINANT, 0.5 ML, IM 03/08/2024,01/27/2024 INFLUENZA VACCINE QUADRIVALE NT 6 MOS UP PF IM 08/17/2022 Influenza Seasonal Unspecifi ed Formulation IM 09/02/2023,08/07/2018,08/15/2017,08/22 Family History Medical History Relation Name Comments Hypertension Brother 3 High Cholesterol Brother 4 Diabetes Father High Cholesterol Father Hypertension Father High Cholesterol Mother Relation Name Status Comments Brother 1 Alive Brother 2 Alive Brother 3 Brother 4 Father Alive Maternal Grandfather Maternal Grandmother Mother Alive Paternal Grandfather Paternal Grandmother Sister Alive Social History Tobacco Use Types Packs/Day Years Used Date Smoking Tobacco: Former Cigarettes 1 20 1 12/21/1987 - 10/20/2008 Passive Smoke Exposure: Past Smokeless Tobacco: Never Tobacco Cessation:Counseling Given: No Alcohol Use Standard Drinks/Week Comments Yes 0 (1 standard drink = 0.6 oz pur e alcohol) social, 2/MONTH Comments No Sex and Gender Information Value Date Recorded Sex Assigned at Not on file Legal Sex Female 10:42 AM MANAGER OF CORPORATE Gender Identity Not on file Sexual Orientation Not on file Last Filed Vital Signs Vital Sign Reading Time Taken Comments Blood Pressure 116/80 01/26/2025 10:11 AM CDT Pulse 81 01/26/2025 10:11 AM CDT Temperature 36.8 C (98.3 F) 05/07/2022 2:49 PM CDT Respiratory Rate 18 08/21/2016 7:35 PM CDT Oxygen Saturation 98% 01/26/2025 10:11 AM CDT Inhaled Oxygen Concentration - - Weight 76.3 kg (168 lb 3.2 oz) 01/26/2025 10:11 AM CDT Height 167.6 cm (5' 6) 01/26/2025 10:11 AM CDT Body Mass Index 27.15 01/26/2025 10:11 AM CDT Plan of Treatment Upcoming Encounters Date Type Department Care Team (Late st Contact Info) Description 04/20/2025 4:20 PM CDT Office Visit [address] [place] [address] Jona Becker MD [address] [place] [address] [address] [place] [address] 10/06/2025 10:40 AM MANAGER OF CORPORATE Office Visit [address] [place] [address] Jona Becker MD [address] [place] [address] [address] [place] [address] Health Maintenance Due Date Last Done Comments HEPATITIS B VACCINES (1 of 3 - 19+ 3-dose series) 1988 HPV/Cotest (21-29) 1990 HPV/Cotest (30-65) 1999 FIT-DNA Q 3 years 2014 FIT/FOBT Q 1 year 2014 Flex Sig/CT Colonography Q 5 years 2014 COVID-19 Vaccine (2 - 2023-2 5 season) 2024 09/17/2022, 10/16/2021, 11/10/2020, Additional history exists BREAST CANCER SCREENING 12/29/2025 12/29/19 25, 12/29/2024, 12/29/2024, Additional history exists Pre-Diabetes and Diabetes Screening 11/18/2026 11/18/2023, 03/22/2022 CERVICAL CANCER SCREENING 12/08/2026 PAP SMEAR 12/08/2026 12/08/2023 COLORECTAL SCREENING 05/01/2032 05/01/2022 Colorectal Cancer Screening 05/01/2032 DTAP/TDAP/TD VACCINES (3 - T d or Tdap) 01/26/2035 01/26/2025, 08/17/2015 ZOSTER VACCINE Completed 03/08/2024, 01/27/2024 INFLUENZA VACCINE Completed 01/26/2025, , 08/17/2022, Additional history exists Preventative Visit- Commercial Completed 0 01/26/2025, 12/08/2023, 12/04/2022, Additional history exists Medical Devices Implanted Type Area [employer] Member Device Identifier Shelf Expiration Date Model / Serial / Lot Hemostatic Surgicel 2x3in 1953 - [id number] Implanted:Qty: 1 on 08/21/2016 by Hansa Dunlap MD at [facility] Hemostatic N/A: Abdomen [employer] 11/[id number] / / [id number] Procedures Procedure Name Priority Date/Time Associated Diagnosis Comments MAMMO SCREEN BILAT W OR WO CAD Routine 12/29/2024 9:06 AM MANAGER OF CORPORATE HM PAP SMEAR Routine 12/08/2023 11:49 AM MANAGER OF CORPORATE HEMOGLOBIN A1C Routine 11/18/2023 11:28 AM MANAGER OF CORPORATE Abnormal glucose ENDOSCOPY, COLON, SCREENING Routine 05/01/2022 from Last 3 Months or Most Recently Relevant to Health Maintenance Results * MAMMO SCREEN BILAT W OR WO CAD (12/29/2024 9:06 AM MANAGER OF CORPORATE) Anatomical Region Laterality Modality Breast Bilateral Mammography us Abstract Provider MAMMO ORDERABLES Edited Result - Final * HM PAP SMEAR (12/08/2023 11:49 AM MANAGER OF CORPORATE) us Abstract Provider HEALTH MAINTENANCE Edited Resu lt - Final [facility] CLIA #[id number] [address] [place] [address] * HEMOGLOBIN A1C (11/18/2023 11:28 AM MANAGER OF CORPORATE) HEMOGLOBIN A1C 4.9 <5.7 % of total Hgb [facility] makayla Brandon Comment: For the purpose of screening for the presence of diabetes: <5.7% Consistent with the absence of diabetes 5.7-6.4% Consistent with increased risk for diabetes (prediabetes) > or =6.5% Consistent with diabetes This assay result is consistent with a decreased risk of diabetes. Currently, no consensus exists regarding use of hemoglobin A1c for diagnosis of diabetes in children. According to [place] Diabetes Association (ADA) guidelines, hemoglobin A1c <7.0% represents optimal control in non- diabetic patients. Different metrics may apply to specific patient populations. Standards of Medical Care in Diabetes(ADA). ESTIMATED AVERAGE GLUCOSE (MG/DL) 94 mg/dL [facility] Brandon ESTIMATED AVERAGE GLUCOSE (MMOL/L) 5.2 mmol/L [facility] makayla Brandon Comment: HbA1c performed on Foot[employer] platform. FASTING:YES FASTING: YES Test Performed at: [facility] [address] [place] [address] Ariane Botello Blood 11/18/2023 11:2 8 AM MANAGER OF CORPORATE 11/18/2023 11:29 AM MANAGER OF CORPORATE Jona Becker MD CHEMISTRY ORDERABLES Final Re sult [facility] [phone] [facility] [place] [address] [place] [address] * ENDOSCOPY, COLON, SCREENING (05/01/2022) us Abstract Provider GI PROCEDURE ORDERABLES Final Result [facility] CLIA# [id number] [address] [facility] [address] [place] [address] from Last 3 Months or Most Recently Relevant to Health Maintenance Insurance BCBS BLUE ACCESS/TRUE BLUE PPO RX [employer] Commercial Advance Directives For more information, please contact: [phone] * Full Code (Latest Code Status on File) Date Activated Date Inactivated Comments 08/21/2016 2:36 PM 08/21/2016 9:37 PM * Full Code Date Activated Date Inactivated Comments 08/21/2016 12:31 PM 08/21/2016 2:36 PM Care Teams Flotation Tender Helper Relationship Specialty Start Date End Date Jona Becker MD PCP - General Internal Medicine 10/11/15
== END 2025-04-12 10:06 | disposition home or self-care (01) ==
PROVIDERS: Emergency Provider Nurse Practitioner Family
DX: S39.012A Strain of muscle, fascia and tendon of lower back, initial encounter (principal); X50.1XXA Overexertion from prolonged static or awkward postures, initial encounter; Y99.0 Civilian activity done for income or pay
CPT/HCPCS: 99213; G0463